=== PATIENT | male | born 1950 | race Caucasian/White ===

== ENCOUNTER 2022-02-28 08:37 | Inpatient (IN) ==
--- NOTE | 2022-02-07 10:54 | PAT Medication Instructions ---
Medication Instructions Date of Service February 07, 2022 Home Medications celecoxib 200 mg capsule (Celebrex) 200 mg PO DAILY dicyclomine 20 mg tablet 20 mg PO QID diphenoxylate-atropine 2.5 mg-0.025 mg tablet 1 tab PO TID PRN gabapentin 100 mg capsule 100 mg PO BID hydroxychloroquine 200 mg tablet (Plaquenil) 400 mg PO DAILY lamotrigine 300 mg tablet,extended release 24 hr (Lamictal XR) 300 mg PO QAM loperamide 2 mg tablet (Imodium A-D) 4 mg PO QAM olmesartan 5 mg tablet 5 mg PO QAM ASK your surgeon for instructions celecoxib 200 mg capsule (Celebrex) 200 mg PO DAILY ASK your prescriber and surgeon hydroxychloroquine 200 mg tablet (Plaquenil) 400 mg PO DAILY DO NOT take the morning of surgery dicyclomine 20 mg tablet 20 mg PO QID diphenoxylate-atropine 2.5 mg-0.025 mg tablet 1 tab PO TID PRN loperamide 2 mg tablet (Imodium A-D) 4 mg PO QAM olmesartan 5 mg tablet 5 mg PO QAM Take morning of surgery With a small sip of water, OTHERWISE NOTHING TO EAT OR DRINK AFTER MIDNIGHT: gabapentin 100 mg capsule 100 mg PO BID lamotrigine 300 mg tablet,extended release 24 hr (Lamictal XR) 300 mg PO QAM Take evening before surgery dicyclomine 20 mg tablet 20 mg PO QID diphenoxylate-atropine 2.5 mg-0.025 mg tablet 1 tab PO TID PRN (if needed) gabapentin 100 mg capsule 100 mg PO BID Other Notes If you have any questions please call us at [phone] or [phone] or [phone] or [phone]
--- NOTE | 2022-02-14 10:18 | Anesthesiology Consultation ---
Date of Service February 14, 2022 Assessment & Plan (1) Encounter for pre-operative examination: - Aortic aneurysm: ? location. 4.0cm per patient (he reports it was incidentally found on imaging/monitored by PCP). Awaiting most recent aortic aneurysm imaging. Also awaiting surgeon-ordered PCP clearance (Dr. Carmona/Chrissy- scheduled 02/20). - COVID screening: Per assessment on 02/14: No known COVID-19 positive contacts or current COVID-19 related symptoms. Travel screen negative. Patient vaccinated. Surgeon arranging preop COVID testing. Awaiting results. Chart Review Chart Review: Patient seen in Pre Admission Testing Teaching & Discussion Pre-Anesthesia Teaching/Discussion Notes: Instructed NPO after midnight before surgery,except medications with 15 cc of water. Medication instructions provided according to the PAT guidelines. History Surgery Operation Date: 02/28/22 09:55 Proposed Procedures p L2-S1 Decompression and Fusion Spinal Cord Monitoring - Vasquez Regalado, Height/Weight Height: 5 ft 10 in Weight: 99 kg Allergies Allergy/AdvReac Type Severity Reaction Status Date / Time prednisone Allergy Intermediate Shakiness Verified 02/04/22 09:05 ibuprofen Allergy Unknown Unknown Verified 02/04/22 09:05 levofloxacin [From Levaquin] Allergy Unknown Unknown Verified 02/04/22 09:05 lisinopril Allergy Unknown Unknown Verified 02/04/22 09:05 cloth bandage Allergy Mild Rash Uncoded 02/04/22 09:05 Medications Home Medications Medication Instructions Recorded Confirmed Last Taken dicyclomine 20 mg tablet 20 mg PO QID 02/04/22 02/04/22 Unknown diphenoxylate-atropine 2.5 1 tab PO TID PRN 02/04/22 02/04/22 Unknown mg-0.025 mg tablet gabapentin 100 mg capsule 100 mg PO BID 02/04/22 02/04/22 Unknown lamotrigine 300 mg tablet,extended 300 mg PO QAM 02/04/22 02/04/22 Unknown release 24 hr (Lamictal XR) loperamide 2 mg tablet (Imodium 4 mg PO QAM 02/04/22 02/04/22 Unknown A-D) olmesartan 5 mg tablet 5 mg PO QAM 02/04/22 02/04/22 Unknown Past Medical History Medical History Aneurysm Incidental finding on imaging per pt > aortic ? location (4.0cm) > follows Dr. Carmona (PCP)/Chrissy Anxiety Arthritis Attention deficit disorder (ADD) Bipolar disorder BPH (benign prostatic hyperplasia) Carpal tunnel syndrome Chronic back pain CKD (chronic kidney disease) Degenerative disc disease Hypertension IBS (irritable bowel syndrome) issues since radiation treatments, reason for GI meds Kidney stones hx Migraine hx Prostate cancer approx 6 yrs > 40 radiation treatments, no surgery Scoliosis Sleep apnea no device Exercise / Class Metabolic Activity II 4-5 Yardwork/Stairs/Walk up hill (one FS (no CP, no SOB)) Past Family History Family History Brother History of anesthesia reaction got very confused, psych issues post op, then resolved Past Surgical History Surgical History History of appendectomy History of cataract surgery r/l History of colonoscopy History of ear surgery cyst removed > benign History of esophagogastroduodenoscopy (EGD) History of lithotripsy Hx of inguinal hernia repair left Hx of vasectomy Hx of vitrectomy r/l S/P cervical spinal fusion C5-6 > ROM WNL per pt Past Anesthesia History No Hx of Anesthesia Complications Brother- "wigged out"/confused with anesthesia emergence History of PONV No Hx of PONV and Hx of Motion Sickness Social History Smoking Status: Never smoker Do You Dip or Chew Tobacco: No Hx Alcohol Use: Yes Alcohol type: beer alcohol intake frequency: holidays/special occasions only Hx Substance Use: No substance use type: does not use Review of Systems Patient denies chest pain, shortness of breath, dyspnea on exertion, fever, chil ls, cough, wheezing, palpitations. Physical Exam Vital Signs VITALS BP 128/89 P 56 TEMP 98.3 SP02 96%RA RESP 16 PHYSICAL Full cervical extension range of motion. Full TMJ range of motion. TMD 3.5 finger breaths Mallampati Score 1 Dentition: intact Lungs: clear throughout to auscultation Cardiac: regular rate and rhythm, no murmurs noted Spine: normal Carotid arteries: negative bruit Extremities: no edema Lab Results Anesthesia Preop Results Results Anesthesia Widget: WBC 5.78 K/uL (4.8-10.8) 02/14/22 Hgb 15.5 g/dL (14.0-18.0) 02/14/22 Hct 46.9 % (42-52) 02/14/22 Plt 229 K/uL (130-400) 02/14/22 Na 137 mmol/L (136-145) 02/14/22 K 4.5 mmol/L (3.5-5.1) 02/14/22 Cl 103 mmol/L (98-107) 02/14/22 CO2 30 mmol/L (21-32) 02/14/22 BUN 23 mg/dl (6-23) 02/14/22 Creat 1.35 mg/dl (0.6-1.4) 02/14/22 Glucose Level 94 mg/dl (70-99(Fasting)) 02/14/22 PT 11.0 Seconds (9.0-12.0) 02/14/22 PTT 29.9 Seconds (21.0-31.0) 02/14/22 INR 1.0 (0.9-1.1) 02/14/22 Urine Color Yellow 02/14/22 Urine Appearance Clear (Clear) 02/14/22 Urine pH 6.0 (4.5-7.5) 02/14/22 Urine Specific [place] 1.021 (1.000-1.030) 02/14/22 Urine Protein Negative (Negative) 02/14/22 Urine Glucose (UA) Negative (Negative) 02/14/22 Urine Ketones Negative (Negative) 02/14/22 Urine Blood Negative (Negative) 02/14/22 Urine Nitrite Negative (Negative) 02/14/22 Urine Bilirubin Negative (Negative) 02/14/22 Urine Urobilinogen Negative (Negative) 02/14/22 Urine Leukocyte Esterase Negative (Negative) 02/14/22 Blood Type A Positive 02/14/22 Antibody Screen NEGATIVE 02/14/22 Testing Laboratory Results 01/08/22 SODIUM 136 POTASSIUM 4.1 CHLORIDE 102 CO2 27.7 BUN 21.2 CREATININE 1.41 GLUCOSE 92 Electrocardiogram Date: 02/14/22 Sinus Bradycardia at 53 bpm. Otherwise normal ECG. Chest X-Ray Date: 02/14/22 FINDINGS: Frontal and lateral radiographs of the chest demonstrate the cardiomediastinal silhouette to be within normal limits. The aorta is atherosclerotic and ectatic. The lungs are clear of alveolar opacities. There is no evidence for effusion bilaterally. There is no evidence for vascular congestion. There is no acute osseous pathology. IMPRESSION: No acute cardiopulmonary disease. Stress Test Date: 12/05/21 Agnostic stress ECG due to artifact and poor quality. Good functional capacity, achieving 7 METS. Chest pain, shortness of breath with exercise complaints. Echocardiogram is negative for ischemia at workload achieved. EF 65%. No obvious RWMA. 86% MPHR.
[~2022-02-28 08:37] MED LIST: ACETAMINOPHEN 500 MG TAB PO SCH; CeleBREX 200 MG CAP PO SCH; GABAPENTIN 300 MG CAP PO SCH; LR 15ML/HR IV SCH; ceFAZolin 2000MG 2,000 MG/15 ML SYR IV SCH
[2022-02-28] MEDS ORDERED: CeleBREX 200 MG CAP ONE (09:12)
--- NOTE | 2022-02-28 09:29 | History & Physical Bridge Note ---
Date of Service February 28, 2022 History & Physical Bridge Note I have examined the patient, reviewed the History & Physical and in the interval since the performance of the History & Physical I have noted the following changes of clinical significance: no changes noted
--- NOTE | 2022-02-28 09:30 | History & Physical Report ---
Date of Service February 28, 2022 Assessment & Plan (1) Neurogenic claudication due to lumbar spinal stenosis: Plan: L2-S1 decompression and fusion History of Present Illness Chief Complaint: Back and bilateral leg pain Primary Care Provider: NO PCP 63-year-old male presents with chronic persistent back and leg pain. Failing course of nonoperative care is here for surgical invention. Allergies Allergy/AdvReac Type Severity Reaction Status Date / Time prednisone Allergy Intermediate Shakiness Verified 02/28/22 09:03 ibuprofen Allergy Unknown Unknown Verified 02/28/22 09:03 levofloxacin [From Levaquin] Allergy Unknown Unknown Verified 02/28/22 09:03 lisinopril Allergy Unknown Unknown Verified 02/28/22 09:03 cloth bandage Allergy Mild Rash Uncoded 02/28/22 09:03 Home Medications Medication Instructions Recorded Confirmed Type dicyclomine 20 mg tablet 20 mg PO QID 02/04/22 02/28/22 History diphenoxylate-atropine 2.5 1 tab PO TID PRN 02/04/22 02/28/22 History mg-0.025 mg tablet gabapentin 100 mg capsule 100 mg PO BID 02/04/22 02/28/22 History lamotrigine 300 mg tablet,extended 300 mg PO QAM 02/04/22 02/28/22 History release 24 hr (Lamictal XR) loperamide 2 mg tablet (Imodium 4 mg PO QAM 02/04/22 02/28/22 History A-D) olmesartan 5 mg tablet 5 mg PO QAM 02/04/22 02/28/22 History Past Med/Surg History Medical History Aneurysm Incidental finding on imaging per pt > aortic ? location (4.0cm) > follows Dr. Carmona (PCP)/Chrissy Anxiety Arthritis Attention deficit disorder (ADD) Bipolar disorder BPH (benign prostatic hyperplasia) Carpal tunnel syndrome Chronic back pain CKD (chronic kidney disease) Degenerative disc disease Hypertension IBS (irritable bowel syndrome) issues since radiation treatments, reason for GI meds Kidney stones hx Migraine hx Prostate cancer approx 6 yrs > 40 radiation treatments, no surgery Scoliosis Sleep apnea no device Surgical History History of appendectomy History of cataract surgery r/l History of colonoscopy History of ear surgery cyst removed > benign History of esophagogastroduodenoscopy (EGD) History of lithotripsy Hx of inguinal hernia repair left Hx of vasectomy Hx of vitrectomy r/l S/P cervical spinal fusion C5-6 > ROM WNL per pt Family History Brother History of anesthesia reaction got very confused, psych issues post op, then resolved Social History Smoking Status: Never smoker Second Hand Exposure: No; Do You Dip or Chew Tobacco: No; Tobacco Cessation Education Requested by Patient: No Hx Alcohol Use: Yes Alcohol type: beer Hx Substance Use: No Preferred Language: Surinamese Communication Ability: Effective Call Worker Person Required: No Beliefs That Will Affect Care: None Current Living Situation: Spouse Other Information That Helps Us Care for You: No Feels Safe at Home: Yes Safety Concerns: Feels Safe At This Time Assistive Devices: Glasses Physical Exam Physical Exam: Patient is alert and oriented Heart regular in rhythm Lungs clear Results & Data Results & Data ([facility]) Vital Signs (Past 12 Hours) Vital Signs Temp Pulse Resp BP Pulse Ox 02/28/22 09:22 36.5 C 66 18 138/91 96
[2022-02-28] MEDS ORDERED: fentaNYL citrate 100 MCG/2 ML VIAL ONE (09:48)
[2022-02-28] MEDS ORDERED: LIDOCAINE 2% 2 ML VIAL/AMP(20MG/ML) INFIL ONE (09:48)
[2022-02-28] MEDS ORDERED: MIDAZOLAM HCL 1 MG/ML 2ML VIAL ONE (09:48)
[2022-02-28] MEDS ORDERED: PROPOFOL IV EMULSION 10 MG/ML 20 ML VIAL IV ONE (09:48)
[2022-02-28] MEDS ORDERED: BUPIVACAINE/EPINEPHRINE 0.25% 1:200,000 30 ML VIAL ONE (09:57)
[2022-02-28] MEDS: ceFAZolin 330 MG/ML 1 GM VIAL ONE ×2 (10:05→12:44)
[2022-02-28] MEDS ORDERED: ROCURONIUM BROMIDE 10 MG/ML 5 ML VIAL IV ONE (10:38)
[2022-02-28] MEDS ORDERED: ONDANSETRON INJ 2 MG/ML 2 ML VIAL ONE (10:39)
[2022-02-28] MEDS ORDERED: FLOSEAL HEMOSTATIC MATRIX 10ML TOP ONE ×4 (10:41→12:07)
[2022-02-28] MEDS ORDERED: NALOXONE HCL 0.4 MG/1 ML VIAL/CARP IV PRN ×2 (10:47→15:33)
[2022-02-28] MEDS ORDERED: PROMETHAZINE HCL 12.5 MG in SODIUM CHLORIDE 0.9% 50 ML IV PRN ×2 (10:47→15:33)
[2022-02-28] MEDS ORDERED: ATROPINE SULFATE 0.1 MG/ML 10ML SYR IV PRN (10:47)
[2022-02-28] MEDS ORDERED: LABETALOL HCL IV 5 MG/ML 20ML IV PRN (10:47)
[2022-02-28] MEDS ORDERED: ePHEDrine sulfate 50 MG/ML AMP IV PRN (10:47)
[2022-02-28] MEDS ORDERED: FLUMAZENIL 0.1 MG/1 ML 10 ML VIAL IV PRN (10:47)
[2022-02-28] MEDS ORDERED: ONDANSETRON INJ 2 MG/ML 2 ML VIAL IV PRN ×2 (10:47→15:33)
[2022-02-28] MEDS ORDERED: HYDROmorphone INJ 2 MG/ML SYR/VIAL ONE (11:18)
[2022-02-28] MEDS ORDERED: ePHEDrine sulfate 50 MG/ML SYR ONE (11:41)
[2022-02-28] MEDS ORDERED: NEOSTIGMINE METHYLSULFATE 1 MG/ML 10ML VIAL ONE (11:42)
[2022-02-28] MEDS ORDERED: GLYCOPYRROLATE 0.2 MG/ML VIAL ONE (11:42)
--- NOTE | 2022-02-28 12:47 | Operative Report ---
Post Operative Report Pre & Post Diagnosis Operation Date: 02/28/22 10:05 Pre-Op Diagnosis: Neurogenic claudication due to lumbar spinal stenosis. Post-Op Diagnosis: Neurogenic claudication due to lumbar spinal stenosis. I identified the patient and participated in the time-out.: Yes Procedure Operation Date: 02/28/22 10:05 Actual Procedures #1 lumbar decompression bilateral medial facetectomies and foraminotomies L2-L3, L3-L4, L4-5 and L5-S1. #2 posterior spinal fusion L2-S1. #3 placement posterior segmental instrumentation L2-S1. #4 interbody fusion L4-L5 #5 placement of Spira 10 x 26 mm cage at L4-L5. #6 placement locally harvested morselized autograft in the posterior gutters. #7 placement infuse collagen sponge, master graft in the posterior lateral gutters and I factor interbody space. Surgeon Vasquez Regalado DO Ems Manager Ramon Diaz Estimated Blood Loss 250 Findings Consistent with Post-Op Diagnosis Specimens None Indications This is a 71-year-old male who presents above-mentioned diagnosis after failed extensive course of nonoperative care is here for the above-mentioned procedure. Description of Procedure Patient was met with identified informed consent obtained. Patient was then taken to the operative suite underwent ablation placed in a prone position the [place] table top [place] frame. All bony prominences well-padded eyes inspected to ensure no external pressure placed upon them. This point lumbar spine was prepped and draped in a sterile fashion. Sharp dissection with the assistance of Bovie cautery was performed down to and exposing the lamina and transverse processes of L2-L3 L4-5 and sacral ala bilaterally. From a caudal cephalad fashion a laminectomy of L5 L4 L3 and L2 was performed including medial facetectomies and foraminotomies addressing severe spinal stenosis. Pedicle screws then placed in L to L3-L4-L5 and S1 levels bilaterally with assistance of fluoroscopy and the proper sized madeline placed. By way of transfer approach on the right complete discectomy of L4-5 was performed endplates curetted to subcortica l bleeding bone and a 10 x 6 mm spiral cage filled I factor tapped in position. The rods then locked in final position bilaterally. The transverse processes of L to L3-L4-L5 and sacral ala burred to subcortical bleeding bone. Infuse collagen sponge master graft lobe autograft was placed in the posterior gutters. 15 round CLAUDETTE drain inserted. The incision was then closed with 1 Vicryl the fascia 2-0 Vicryl subcutaneously and 4 Monocryl for final skin closure. Steri- Strips dressings placed. Patient waken taken to PACU stable condition. Please note spinal cord monitoring visualized at the procedure no changes noted. Lastly Ramon Diaz was present at the entire surgery while the patient positioning complex portions of the surgery and final skin closure. I attest to the content of the Intraoperative Record and any orders documented therein. Any exceptions are noted below.
--- NOTE | 2022-02-28 13:11 | Fluoroscopy Report ---
FL lumbar spine 2-3V CLINICAL HISTORY: L2-S1 DECOMPRESSION AND FUSION TECHNIQUE: 3 views were obtained with the C-arm in the OR with the above procedure. Total fluoroscopy time was 38.8 seconds. Total skin dose was 32.4 mGy. Comparison: None available at the time of this dictation. FINDINGS/IMPRESSION: Intraoperative images were obtained of posterior spinal fixation hardware spanni ng L2 S1. Please correlate with intraoperative fluoroscopy and operative report. ACT 112: Negative or not required by law. Electronically signed by: Issac Fernando M.D. 02/28/2022 1:09 PM
[2022-02-28] MEDS: fentaNYL citrate 100 MCG/2 ML VIAL IV PRN ×2 (13:41→13:46)
[2022-02-28] MEDS: HYDROmorphone INJ 1 MG/ML SYRINGE IV PRN ×6 (13:50→15:00)
--- NOTE | 2022-02-28 14:32 | Anesthesiology Progress Note ---
Date of Service February 28, 2022 Anesthesia Post Procedure Vital Signs Vital Signs: Temp Pulse Pulse Resp BP Pulse Ox 02/28/22 14:15 60 18 125/82 98 02/28/22 14:05 36.2 C L 53 L 19 117/81 99 02/28/22 13:55 58 L 17 125/85 98 02/28/22 13:45 58 L 20 131/82 98 02/28/22 13:35 59 L 18 120/82 98 02/28/22 13:25 56 L 20 121/76 100 02/28/22 13:15 36 C L 66 21 130/84 98 02/28/22 09:22 36.5 C 66 18 138/91 96 Pain Intensity Back: Pain Intensity: 6 Transfer of Care Handoff Completed per policy Notes Mental Status: alert / awake / arousable Patient Amnestic to Procedure: Yes Nausea / Vomiting: adequately controlled Pain: adequately controlled Airway Patency, RR, SpO2: stable & adequate BP & HR: stable & adequate Hydration State: stable & adequate Anesthetic Complications: no major complications apparent
[2022-02-28] MEDS ORDERED: traMADol HCL 50 MG TABLET PO PRN (15:33)
[2022-02-28] MEDS ORDERED: hydrOXYzine HCl 25 MG TAB PO PRN (15:33)
[2022-02-28] MEDS ORDERED: ACETAMINOPHEN 1,000 MG/100 ML VIAL IV PRN (15:33)
[2022-02-28] MEDS ORDERED: MAGNESIUM HYDROXIDE SUSP 30 ML UDC PO PRN (15:33)
[2022-02-28] MEDS ORDERED: LORazepam 2 MG/1 ML VIAL IV PRN (15:33)
[2022-02-28] MEDS ORDERED: bisacodyL 10 MG SUPP PR PRN (15:33)
[2022-02-28] MEDS ORDERED: ONDANSETRON 4 MG OD TAB PO PRN (15:33)
[2022-02-28] MEDS ORDERED: DO NOT ADMINISTER PNEUMOCOCCAL VACCINE PRN (15:33)
[2022-02-28] MEDS ORDERED: SOD PHOSPHATE/SOD BIPHOSPHATE ENEMA 132 ML BTL PR PRN (15:33)
[2022-02-28] MEDS ORDERED: ACETAMINOPHEN 500 MG TAB PO PRN (15:33)
[2022-02-28] MEDS ORDERED: ALUMINUM/MAGNESIUM SUSP 30 ML UDC PO PRN (15:33)
[2022-02-28] MEDS ORDERED: METOCLOPRAMIDE HCL INJ 5 MG/ML 2 ML VIAL IV PRN (15:33)
[2022-02-28] MEDS ORDERED: FAMOTIDINE 20 MG TAB PO PRN (15:33)
[2022-02-28] MEDS ORDERED: diphenhydrAMINE Capsule 25 MG CAP PO PRN (15:33)
[2022-02-28] MEDS ORDERED: DO NOT ADMINISTER FLU VACCINE PRN (15:33)
[2022-02-28] MEDS ORDERED: DIPHENOXYLATE/ATROPINE 2.5/0.025MG TAB PO PRN (15:41)
[2022-02-28] MEDS ORDERED: LORazepam 0.5 MG TAB PO PRN (15:44)
[2022-02-28] MEDS: ALLERGY Noted to ORDERED Medication SCH ×5 (15:47→23:04)
[2022-02-28] MEDS: SODIUM CHLORIDE 0.9% 1000ML 1,000 ML IV SCH (16:38)
--- NOTE | 2022-02-28 16:52 | Consultation ---
Date of Consultation February 28, 2022 Assessment & Plan (1) Status post lumbar surgery: Post op day# 0 S/P L2-S1 decompression and fusion today by Dr Sabine RAMOS#250ml -pain management per ortho -wound management per ortho -PT/OT as appropriate -DVT prophylaxis per ortho -incentive spirometry -monitor H&H for acute blood loss anemia; pre-op Hgb: 15 (2) IBS (irritable bowel syndrome): -continue dicyclomine (3) Bipolar disorder: - Continue Lamictal (4) CKD (chronic kidney disease): CKD III Pre-op Cr: 1.3 Monitor renal functions, avoid nephrotoxic agents when possible (5) Prostate cancer: S/p radiation (6) Sleep apnea: Intolerant to CPAP DVT Prophylaxis -SCDs Disposition per primary service Follows with Dr Carmona in [place] for routine care Pt was seen and care coordinated with Dr Singletary. See addendum Thank you for this consultation. We will follow the patient with you during their hospital stay. You can reach a [facility]05 via [place] Text Supervising Physician Co-Signing Physician Notes Patient seen and examined at bedside. Chart reviewed, case discussed with Claribel OTERO and agree with her documentation. In summary, 71 year old male lumbar spinal stenosis with neurogenic claudication who underwent #1 lumbar decompression bilateral medial facetectomies and foraminotomies L2-L3, L3-L4, L4-5 and L5-S1. #2 posterior spinal fusion L2-S1. #3 placement posterior segmental instrumentation L2-S1. #4 interbody fusion L4-L5 #5 placement of Spira 10 x 26 mm cage at L4-L5. #6 placement locally harvested morselized autograft in the posterior gutters. #7 placement infuse collagen sponge, master graft in the posterior lateral gutters and I factor interbody space by Dr Regalado. Had nausea earlier which resolved. Tolerated gingerale and some chicken broth. Says he feels stiff and asking when he can move around. Pain is controlled. AAO. Chest clear, heart sounds normal, abdomen benign, no edema, CLAUDETTE drain +, titus +. Further surgical management including diet, DVT prophylaxis, pain management and activities per primary team. Chronic medical conditions stable. Rest as per above. We will be available to assist with any medical issues which arise during the hospital stay. History of Present Illness Requesting Physician: Dr Regalado Reason for Consultation: Post op medical management Attending Physician: Vasquez Regalado, DO History of Present Illness Patient is 71 y/o M with PMH HTN, CKD III, bipolar disorder, IBS, history of prostate CA s/p radiation, MARKUS intolerant to CPAP, BPH seen in medical consultation s/p L2-S1 decompression and fusion today by Dr. Regalado. Postop patient reports nausea. He reports pressure to low back area. Denies extremity pain or paresthesias. Has Titus cath in place. Patient reports since history of radiation he often has multiple soft BMs a day. Denies fever/chills, diaphoresis, N/V, [place], dizziness, syncope, vision changes, neck pain, CP, SOB, orthopnea, palpitations, cough, sore throat, otalgia, rhinorrhea, abdominal pain, extremity weakness, extremity edema, rashes, urinary symptoms. Allergies Allergy/AdvReac Type Severity Reaction Status Date / Time prednisone Allergy Intermediate Shakiness Verified 02/28/22 09:03 ibuprofen Allergy Unknown Unknown Verified 02/28/22 09:03 levofloxacin [From Levaquin] Allergy Unknown Unknown Verified 02/28/22 09:03 lisinopril Allergy Unknown Unknown Verified 02/28/22 09:03 cloth bandage Allergy Mild Rash Uncoded 02/28/22 09:03 Home Medications Medication Instructions Recorded Confirmed Type dicyclomine 20 mg tablet 20 mg PO QID 02/04/22 02/28/22 History diphenoxylate-atropine 2.5 1 tab PO TID PRN 02/04/22 02/28/22 History mg-0.025 mg tablet gabapentin 100 mg capsule 100 mg PO BID 02/04/22 02/28/22 History lamotrigine 300 mg tablet,extended 300 mg PO QAM 02/04/22 02/28/22 History release 24 hr (Lamictal XR) loperamide 2 mg tablet (Imodium 4 mg PO QAM 02/04/22 02/28/22 History A-D) olmesartan 5 mg tablet 5 mg PO QAM 02/04/22 02/28/22 History Patient History Medical History Aneurysm Incidental finding on imaging per pt > aortic ? location (4.0cm) > follows Dr. Carmona (PCP)/Chrissy Anxiety Arthritis Attention deficit disorder (ADD) Bipolar disorder BPH (benign prostatic hyperplasia) Carpal tunnel syndrome Chronic back pain CKD (chronic kidney disease) Degenerative disc disease Hypertension IBS (irritable bowel syndrome) issues since radiation treatments, reason for GI meds Kidney stones hx Migraine hx Prostate cancer approx 6 yrs > 40 radiation treatments, no surgery Scoliosis Sleep apnea no device Surgical History History of appendectomy History of cataract surgery r/l History of colonoscopy History of ear surgery cyst removed > benign History of esophagogastroduodenoscopy (EGD) History of lithotripsy Hx of inguinal hernia repair left Hx of vasectomy Hx of vitrectomy r/l S/P cervical spinal fusion C5-6 > ROM WNL per pt Family History Brother History of anesthesia reaction got very confused, psych issues post op, then resolved Social History Smoking Status: Never smoker Second Hand Exposure: No; Do You Dip or Chew Tobacco: No; Tobacco Cessation Education Requested by Patient: No Hx Alcohol Use: No Hx Substance Use: No Preferred Language: Belgian Communication Ability: Effective Woods Overseer Required: No Beliefs That Will Affect Care: None Current Living Situation: Spouse Other Information That Helps Us Care for You: No Feels Safe at Home: Yes Safety Concerns: Feels Safe At This Time Assistive Devices: Glasses Review of Systems Review of Systems: All systems reviewed & are unremarkable except as noted in HPI & below Physical Exam Physical Exam: General: mild distress, patient uncomfortable in bed and trying to find position of comfort. WDWN Head: normocephalic, atraumatic Eyes: conjunctiva non-injected, anicteric ENT: normal inspection external ears, nose, mucous membranes moist Neck: supple, trachea midline Lungs: clear, no respiratory distress, no wheezing/rhonchi/rales CV: RRR, no murmur, no pretibial edema Abd: normal BS, soft, non-tender Back: surgical dressing in place and dry. +CLAUDETTE drain in place with scant amount of serosanguineous drainage Ext: no cyanosis, no calf tenderness; pedal pushes and pulls intact bilaterally Neuro: A&O x 3, no focal deficits noted, normal affect Skin: warm, dry Results & Data ([facility]) Vital Signs (Past 12 Hours) Vital Signs Temp Pulse Pulse Resp BP Pulse Ox 02/28/22 16:20 36.3 C L 60 16 127/84 97 02/28/22 15:50 36.3 C L 55 L 16 122/76 97 02/28/22 15:20 36.4 C L 51 L 16 118/73 94 02/28/22 15:15 54 L 18 122/76 96 02/28/22 15:05 49 L 17 135/82 97 02/28/22 14:55 47 L 15 127/91 97 02/28/22 14:45 36 C L 57 L 14 126/78 94 02/28/22 14:35 57 L 15 128/73 98 02/28/22 14:25 61 13 118/76 98 02/28/22 14:15 60 18 125/82 98 02/28/22 14:05 36.2 C L 53 L 19 117/81 99 02/28/22 13:55 58 L 17 125/85 98 02/28/22 13:45 58 L 20 131/82 98 02/28/22 13:35 59 L 18 120/82 98 02/28/22 13:25 56 L 20 121/76 100 02/28/22 13:15 36 C L 66 21 130/84 98 02/28/22 09:22 36.5 C 66 18 138/91 96
[2022-02-28] MEDS: DICYCLOMINE HCL 20 MG TAB PO SCH ×2 (17:43→19:35)
[2022-02-28] MEDS: ceFAZolin 2000MG 2,000 MG/15 ML SYR IV SCH (18:12)
[2022-02-28] MEDS: GABAPENTIN 100 MG CAP PO SCH (19:35)
[2022-02-28] MEDS: DOCUSATE SODIUM/SENNA 50/8.6MG TAB PO SCH (19:36)
[2022-02-28] MEDS: oxyCODONE HCL IR 5 MG TAB (IMMEDIATE RELEASE) PO PRN (21:51)
[2022-02-28] MEDS ORDERED: COUGH DROP (SUGAR FREE) LOZ 24 LOZ/1 BOX BUCCAL PRN (22:16)
[2022-03-01] MEDS: SODIUM CHLORIDE 0.9% 1000ML 1,000 ML IV SCH (01:30)
[2022-03-01] MEDS: HYDROmorphone INJ 0.5 MG/0.5 ML SYR IV PRN ×2 (01:30→11:56)
[2022-03-01] MEDS: ceFAZolin 2000MG 2,000 MG/15 ML SYR IV SCH (04:01)
[2022-03-01 05:58] LABS: Basophils # (auto) 0.01 K/uL (0-0.2); Basophils % (auto) 0.2 %; Eosinophils # (auto) 0.16 K/uL (0-0.5); Eosinophils % (auto) 2.5 %; Hematocrit (blood only) 34.9 % (42-52); Hemoglobin 11.4 g/dL (14.0-18.0); Immature Granulocytes # (auto) 0.01 K/uL (0.00-0.02); Immature Granulocytes % (auto) 0.2 %; Lymphocytes # (auto) 1.16 K/uL (1.2-3.4); Lymphocytes % (auto) 18.1 %; Mean Corpuscular Hemoglobin 30.1 pg (25-34); Mean Corpuscular Hgb Conc 32.7 g/dL (32-36); Mean Corpuscular Volume 92.1 fL (80-100); Mean Platelet Volume 10.7 fL (7.4-10.4); Monocytes # (auto) 0.72 K/uL (0.11-0.59); Monocytes % (auto) 11.2 %; Neutrophils # (auto) 4.35 K/uL (1.4-6.5); Neutrophils % (auto) 67.8 %; Platelet Count 192 K/uL (130-400); RDW Coefficient of Variation 13.6 % (11.5-14.5); RDW Standard Deviation 45.8 fL (36.4-46.3); Red Blood Count 3.79 M/uL (4.7-6.1); White Blood Count 6.41 K/uL (4.8-10.8)
[2022-03-01] MEDS: POLYETHYLENE (MIRALAX) 17 GM PACK PO SCH ×4 (06:04→23:01)
[2022-03-01 06:18] LABS: BUN Creatinine Ratio 16.7 (10-20); Calcium 7.9 mg/dl (8.5-10.1); Creatinine Clr Calc Pharmacy 74.8 ml/min; Est GFR (African American) 80.7 ml/min; Est GFR (Non-African American) 69.7 ml/min; Potassium 4.3 mmol/L (3.5-5.1)
--- NOTE | 2022-03-01 08:20 | Hospitalist Progress Note ---
Date of Service March 01, 2022 Assessment & Plan (1) Status post lumbar surgery: Plan: Post op day# 1 S/P L2-S1 decompression and fusion by Dr Regalado -pain management per ortho -wound management per ortho -PT/OT as appropriate -DVT prophylaxis per ortho -incentive spirometry Acute blood loss anemia Postop/dilutional Current Hgb 11.4, pre-op Hgb: 15 Expected, no need for blood transfusion (2) IBS (irritable bowel syndrome): Plan: -change home dicyclomine to PRN for now (3) Bipolar disorder: Plan: - Continue Lamictal (4) CKD (chronic kidney disease): Plan: CKD III Pre-op Cr: 1.3 Monitor renal functions, avoid nephrotoxic agents when possible (5) Prostate cancer: Plan: S/p radiation (6) Sleep apnea: Plan: Intolerant to CPAP DVT Prophylaxis -SCDs Disposition per primary service Follows with Dr Carmona in [place], [place] for routine care Thank you for this consultation. We will follow the patient with you during their hospital stay. You can reach a member of the [facility] Hospitalist Team 11/05 via [place] Text Admission and Anticipated Discharge Date Admission Date: February 28, 2022 Subjective Patient seen in follow-up of lumbar spinal surgery Currently sitting up in a chair, in no acute distress Khan placed, drains clear yellow urine Patient feels well overall, but has some back pain Denies any fevers, chills, chest pain, shortness of breath, abdominal pain, nausea vomiting Review of Systems Review of Systems: All systems reviewed & are unremarkable except as noted in Subjective Physical Exam Physical Exam: General: WD/WN M in NAD Head: normocephalic, atraumatic Eyes: conjunctiva non-injected, anicteric ENT: normal inspection external ears, nose, mucous membranes moist Neck: supple, trachea midline Lungs: clear, no respiratory distress, no wheezing/rhonchi/rales CV: RRR, no murmur, no pretibial edema Abd: normal BS, soft, non-tender Back: surgical dressing in place and dry. +CLAUDETTE drain in place with scant amount of serosanguineous drainage Ext: no calf tenderness; pedal pushes and pulls intact bilaterally, ambulates Neuro: A&O x 3, no focal deficits noted, normal affect Skin: warm, dry Results & Data Results & Data ([facility]) Vital Signs (Past 12 Hours) Vital Signs Temp Pulse Resp BP Pulse Ox 03/01/22 07:56 36.7 C 79 16 100/63 94 03/01/22 01:09 36.9 C 54 L 16 107/64 97 02/28/22 23:08 36.6 C 63 16 99/68 L 98 Laboratory Results 03/01/22 03/01/22 02/28/22 Range/Units 05:42 05:42 Unknown WBC 6.41 (4.8-10.8) K/uL RBC 3.79 L (4.7-6.1) M/uL Hgb 11.4 L (14.0-18.0) g/dL Hct 34.9 L (42-52) % MCV 92.1 (80-100) fL MCH 30.1 (25-34) pg MCHC 32.7 (32-36) g/dL RDW Std Deviation 45.8 (36.4-46.3) fL RDW Coeff of Annette 13.6 (11.5-14.5) % Plt Count 192 (130-400) K/uL MPV 10.7 H (7.4-10.4) fL Immature Gran % (Auto) 0.2 % Neut % (Auto) 67.8 % Lymph % (Auto) 18.1 % Catron % (Auto) 11.2 % Eos % (Auto) 2.5 % Baso % (Auto) 0.2 % Neut # (Auto) 4.35 (1.4-6.5) K/uL Lymph # (Auto) 1.16 L (1.2-3.4) K/uL Catron # (Auto) 0.72 H (0.11-0.59) K/uL Eos # (Auto) 0.16 (0-0.5) K/uL Baso # (Auto) 0.01 (0-0.2) K/uL Immature Gran # (Auto) 0.01 (0.00-0.02) K/uL Sodium 135 L (136-145) mmol/L Potassium 4.3 (3.5-5.1) mmol/L Chloride 103 (98-107) mmol/L Carbon Dioxide 28 (21-32) mmol/L Anion Gap 4 (3-11) BUN 18 (6-23) mg/dl Creatinine 1.08 (0.6-1.4) mg/dl Est Cr Clr Drug Dosing 74.8 ml/min Est GFR ( Amer) 80.7 ml/min Est GFR (Non-Af Amer) 69.7 ml/min BUN/Creatinine Ratio 16.7 (10-20) Glucose 125 H (70-99(Fasting)) mg/dl Calcium 7.9 L (8.5-10.1) mg/dl SARS-CoV-2, RNA, NAAT NEGATIVE (NEGATIVE) Blood Type Antibody Screen Crossmatch 02/28/22 Range/Units 08:57 WBC (4.8-10.8) K/uL RBC (4.7-6.1) M/uL Hgb (14.0-18.0) g/dL Hct (42-52) % MCV (80-100) fL MCH (25-34) pg MCHC (32-36) g/dL RDW Std Deviation (36.4-46.3) fL RDW Coeff of Annette (11.5-14.5) % Plt Count (130-400) K/uL MPV (7.4-10.4) fL Immature Gran % (Auto) % Neut % (Auto) % Lymph % (Auto) % Catron % (Auto) % Eos % (Auto) % Baso % (Auto) % Neut # (Auto) (1.4-6.5) K/uL Lymph # (Auto) (1.2-3.4) K/uL Catron # (Auto) (0.11-0.59) K/uL Eos # (Auto) (0-0.5) K/uL Baso # (Auto) (0-0.2) K/uL Immature Gran # (Auto) (0.00-0.02) K/uL Sodium (136-145) mmol/L Potassium (3.5-5.1) mmol/L Chloride (98-107) mmol/L Carbon Dioxide (21-32) mmol/L Anion Gap (3-11) BUN (6-23) mg/dl Creatinine (0.6-1.4) mg/dl Est Cr Clr Drug Dosing ml/min Est GFR ( Amer) ml/min Est GFR (Non-Af Amer) ml/min BUN/Creatinine Ratio (10-20) Glucose (70-99(Fasting)) mg/dl Calcium (8.5-10.1) mg/dl SARS-CoV-2, RNA, NAAT (NEGATIVE) Blood Type A Positive Antibody Screen NEGATIVE Crossmatch See Detail Medications Administered Current Inpatient Medications Acetaminophen (Acetaminophen 500 Mg Tab) 1,000 mg PO Q8H PRN PRN Reason: MILD Pain Scale 1,2,3 & Pre PT Stop: 03/30/22 15:32 Al Hydrox/Mg Hydrox/Simethicone (Aluminum/Magnesium Susp 30 Ml Udc) 30 ml PO Q6H PRN PRN Reason: Dyspepsia Stop: 03/30/22 15:32 Bisacodyl (Bisacodyl 10 Mg Supp) 10 mg AL DAILY PRN PRN Reason: Constipation Stop: 03/30/22 15:32 Dicyclomine HCl (Dicyclomine Hcl 20 Mg Tab) 20 mg PO QID [facility] Stop: 03/30/22 16:59 Last Admin: 02/28/22 19:35 Dose: Not Given Documented by: Diphenhydramine HCl (Diphenhydramine Capsule 25 Mg Cap) 25 mg PO Q6H PRN PRN Reason: Allergic Rhinitis/Insomnia Stop: 03/30/22 15:32 Diphenoxylate HCl/Atropine (Diphenoxylate/Atropine 2.5/0.025mg Tab) 1 tab PO TID PRN PRN Reason: Diarrhea Stop: 03/30/22 15:40 Famotidine (Famotidine 20 Mg Tab) 20 mg PO Q12H PRN PRN Reason: Dyspepsia Stop: 03/30/22 15:32 Gabapentin (Gabapentin 100 Mg Cap) 100 mg PO BID [facility] Stop: 03/30/22 20:59 Last Admin: 02/28/22 19:35 Dose: Not Given Documented by: Hydromorphone HCl (Hydromorphone Inj 0.5 Mg/0.5 Ml Syr) 0.5 mg IV Q3H PRN PRN Reason: MODERATE Pain (Scale 4,5,6) & Pre PT Stop: 03/14/22 15:32 Last Admin: 03/01/22 01:30 Dose: 0.5 mg Documented by: Hydromorphone HCl (Hydromorphone Inj 1 Mg/Ml Syringe) 1 mg IV Q3H PRN PRN Reason: SEVERE Pain (Scale 7,8,9,10) Stop: 03/14/22 15:32 Hydroxyzine HCl (Hydroxyzine Hcl 25 Mg Tab) 25 mg PO Q8H PRN PRN Reason: Anxiety Stop: 03/30/22 15:32 Promethazine HCl 12.5 mg/ (Sodium Chloride) 50.5 mls @ 202 mls/hr IV Q6H PRN PRN Reason: Nausea &/or Vomiting Stop: 03/30/22 15:32 Last Infusion: 02/28/22 17:40 Dose: Infused Documented by: Acetaminophen (Ofirmev) 1,000 mg in 100 mls @ 400 mls/hr IV Q8H PRN PRN Reason: Pain Rating 1-3 & Pre PT Stop: 03/03/22 15:32 Dexamethasone 6 mg/ Syringe 1.5 mls @ 1 mls/min IV DAILY [facility] Stop: 03/03/22 09:02 Influenza Virus Vaccine Quadrival (Do Not Administer Flu Vaccine) 1 ea N/A PRN PRN PRN Reason: Notification Stop: 03/30/22 15:32 Lamotrigine (Lamotrigine [Lamictal Xr] 300 Mg Tablet) 1 ea PO QAM [facility] Stop: 03/31/22 08:59 Lorazepam (Lorazepam 0.5 Mg Tab) 0.5 mg PO Q8H PRN PRN Reason: Sedation/Anxiety Stop: 03/30/22 15:43 Lorazepam (Lorazepam 2 Mg/1 Ml Vial) 0.5 mg IV Q8H PRN PRN Reason: Sedation/Anxiety Stop: 03/30/22 15:32 Magnesium Hydroxide (Magnesium Hydroxide Susp 30 Ml Udc) 30 ml PO Q24H PRN PRN Reason: Constipation Stop: 03/30/22 15:32 Menthol (Cough Drop (Sugar Free) Marimar 24 Marimar/1 Box) 1 marimar BUCCAL PRN PRN PRN Reason: Sore Throat Stop: 03/30/22 22:15 Last Admin: 02/28/22 23:03 Dose: 1 marimar Documented by: Metoclopramide HCl (Metoclopramide Hcl Inj 5 Mg/Ml 2 Ml Vial) 10 mg IV Q6H PRN PRN Reason: Nausea &/or Vomiting Stop: 03/30/22 15:32 Naloxone HCl (Naloxone Hcl 0.4 Mg/1 Ml Vial/Carp) 0.1 mg IV Q5M PRN PRN Reason: Oversedation/Resp depression Stop: 03/30/22 15:32 Olmesartan (Olmesartan Medoxomil 5 Mg Tab) 5 mg PO QAM [facility] Stop: 03/31/22 08:59 Ondansetron HCl (Ondansetron Inj 2 Mg/Ml 2 Ml Vial) 4 mg IV Q6H PRN PRN Reason: Nausea &/or Vomiting Stop: 03/30/22 15:32 Last Admin: 02/28/22 15:52 Dose: 4 mg Documented by: Ondansetron HCl (Ondansetron 4 Mg Od Tab) 4 mg PO Q6H PRN PRN Reason: Nausea Stop: 03/30/22 15:32 Oxycodone HCl (Oxycodone Hcl Ir 5 Mg Tab (Immediate Release)) 5 - 10 mg PO Q4H PRN PRN Reason: Pain & Pre PT Stop: 03/14/22 15:32 Last Admin: 02/28/22 21:51 Dose: 10 mg Documented by: Pneumococcal Polyvalent Vaccine (Do Not Administer Pneumococcal Vaccine) 1 ea N/A PRN PRN PRN Reason: Notification Stop: 03/30/22 15:32 Polyethylene Glycol (Polyethylene (Miralax) 17 Gm Pack) 17 gm PO Q6 [facility] Stop: 03/31/22 05:59 Last Admin: 03/01/22 06:04 Dose: 17 gm Documented by: Senna/Docusate Sodium (Docusate Sodium/Senna 50/8.6mg Tab) 2 tab PO HS [facility] Stop: 03/30/22 20:59 Last Admin: 02/28/22 19:36 Dose: 2 tab Documented by: Sodium Biphosphate/Sodium Phosphate (Sod Phosphate/Sod Biphosphate Enema 132 Ml Btl) 132 ml AL ONE PRN PRN Reason: Constipation Stop: 03/30/22 15:32 Tramadol HCl (Tramadol Hcl 50 Mg Tablet) 50 - 100 mg PO Q4H PRN PRN Reason: Moderate-Severe pain & Pre PT Stop: 03/30/22 15:32
[2022-03-01] MEDS: OLMESARTAN MEDOXOMIL 5 MG TAB PO SCH (08:58)
[2022-03-01] MEDS: DICYCLOMINE HCL 20 MG TAB PO SCH ×2 (08:58→13:11)
[2022-03-01] MEDS: LAMOTRIGINE 300 MG PO SCH (08:59)
[2022-03-01] MEDS: GABAPENTIN 100 MG CAP PO SCH ×2 (09:00→21:10)
[2022-03-01] MEDS: oxyCODONE HCL IR 5 MG TAB (IMMEDIATE RELEASE) PO PRN ×3 (09:01→19:06)
[2022-03-01] MEDS: dexAMETHasone 6 MG in SYRINGE 0 ML IV SCH ×2 (09:02→10:49)
--- NOTE | 2022-03-01 10:26 | Orthopedic Progress Note ---
Date of Service March 01, 2022 Assessment & Plan (1) Neurogenic claudication due to lumbar spinal stenosis: Plan: At this time continue physical therapy monitor his CLAUDETTE output hopefully discharge home in the next few days. Admission and Anticipated Discharge Date Admission Date: February 28, 2022 Subjective Back pain controlled leg pain improved Physical Exam Physical Exam: Patient is in the chair at the bedside is good strength testing. Results & Data ([facility]) Vital Signs (Past 12 Hours) Vital Signs Temp Pulse Resp BP Pulse Ox 03/01/22 08:57 71 101/63 03/01/22 07:56 36.7 C 79 16 100/63 94 03/01/22 01:09 36.9 C 54 L 16 107/64 97 02/28/22 23:08 36.6 C 63 16 99/68 L 98
[2022-03-01] MEDS ORDERED: DICYCLOMINE HCL 20 MG TAB PO PRN (13:33)
[2022-03-01] MEDS: HYDROmorphone INJ 1 MG/ML SYRINGE IV PRN (21:09)
[2022-03-01] MEDS: DOCUSATE SODIUM/SENNA 50/8.6MG TAB PO SCH (21:10)
[2022-03-02] MEDS: HYDROmorphone INJ 1 MG/ML SYRINGE IV PRN (04:44)
[2022-03-02 06:03] LABS: Hematocrit (blood only) 36.1 % (42-52); Hemoglobin 12.1 g/dL (14.0-18.0); Mean Corpuscular Hemoglobin 30.6 pg (25-34); Mean Corpuscular Hgb Conc 33.5 g/dL (32-36); Mean Corpuscular Volume 91.2 fL (80-100); Mean Platelet Volume 10.5 fL (7.4-10.4); Platelet Count 213 K/uL (130-400); RDW Coefficient of Variation 13.5 % (11.5-14.5); RDW Standard Deviation 45.1 fL (36.4-46.3); Red Blood Count 3.96 M/uL (4.7-6.1); White Blood Count 9.35 K/uL (4.8-10.8)
[2022-03-02] MEDS: POLYETHYLENE (MIRALAX) 17 GM PACK PO SCH ×3 (06:04→17:27)
[2022-03-02 06:18] LABS: BUN Creatinine Ratio 11.4 (10-20); Calcium 8.6 mg/dl (8.5-10.1); Creatinine Clr Calc Pharmacy 70.8 ml/min; Est GFR (African American) 75.6 ml/min; Est GFR (Non-African American) 65.3 ml/min; Potassium 4.5 mmol/L (3.5-5.1)
--- NOTE | 2022-03-02 07:43 | Hospitalist Progress Note ---
Date of Service March 02, 2022 Assessment & Plan (1) Status post lumbar surgery: Plan: Post op day# 2 S/P L2-S1 decompression and fusion by Dr Regalado -pain management per ortho -wound management per ortho -PT/OT as appropriate -DVT prophylaxis per ortho -incentive spirometry - pt complains of constipation, discussed with RN to provide prn bowel regimen Acute blood loss anemia Postop/dilutional Current Hgb 12.1, pre-op Hgb: 15 Expected, no need for blood transfusion (2) IBS (irritable bowel syndrome): Plan: -change home dicyclomine to PRN for now (3) Bipolar disorder: Plan: - Continue Lamictal (4) CKD (chronic kidney disease): Plan: CKD III Pre-op Cr: 1.3 Monitor renal functions, avoid nephrotoxic agents when possible (5) Prostate cancer: Plan: S/p radiation (6) Sleep apnea: Plan: Intolerant to CPAP DVT Prophylaxis -SCDs Disposition per primary service Follows with Dr Carmona in [place], [place] for routine care Thank you for this consultation. We will follow the patient with you during their hospital stay. [facility] via [place] Text Admission and Anticipated Discharge Date Admission Date: February 28, 2022 Subjective Patient seen in follow-up of lumbar spinal surgery Currently sitting up in a chair, in no acute distress Patient feels well overall, but reports some back pain Denies any fevers, chills, chest pain, shortness of breath, abdominal pain, nausea vomiting No BM yet, and not passing gas Review of Systems Review of Systems: All systems reviewed & are unremarkable except as noted in Subjective Physical Exam Physical Exam: General: WD/WN M in NAD Head: normocephalic, atraumatic Eyes: conjunctiva non-injected, anicteric ENT: normal inspection external ears, nose, mucous membranes moist Neck: supple, trachea midline Lungs: clear, no respiratory distress, no wheezing/rhonchi/rales CV: RRR, no murmur, no pretibial edema Abd: normal BS, soft, non-tender Back: surgical dressing in place and dry. +CLAUDETTE drain in place with scant amount of serosanguineous drainage Ext: no calf tenderness; pedal pushes and pulls intact bilaterally, ambulates Neuro: A&O x 3, no focal deficits noted, normal affect Skin: warm, dry Results & Data Results & Data ([facility]) Vital Signs (Past 12 Hours) Vital Signs Temp Pulse Resp BP Pulse Ox 03/01/22 22:00 37.1 C 94 H 20 109/71 94 Laboratory Results 03/02/22 03/02/22 02/28/22 Range/Units 05:50 05:50 08:57 WBC 9.35 (4.8-10.8) K/uL RBC 3.96 L (4.7-6.1) M/uL Hgb 12.1 L (14.0-18.0) g/dL Hct 36.1 L (42-52) % MCV 91.2 (80-100) fL MCH 30.6 (25-34) pg MCHC 33.5 (32-36) g/dL RDW Std Deviation 45.1 (36.4-46.3) fL RDW Coeff of Annette 13.5 (11.5-14.5) % Plt Count 213 (130-400) K/uL MPV 10.5 H (7.4-10.4) fL Sodium 131 L (136-145) mmol/L Potassium 4.5 (3.5-5.1) mmol/L Chloride 100 (98-107) mmol/L Carbon Dioxide 28 (21-32) mmol/L Anion Gap 3 (3-11) BUN 13 (6-23) mg/dl Creatinine 1.14 (0.6-1.4) mg/dl Est Cr Clr Drug Dosing 70.8 ml/min Est GFR ( Amer) 75.6 ml/min Est GFR (Non-Af Amer) 65.3 ml/min BUN/Creatinine Ratio 11.4 (10-20) Glucose 115 H (70-99(Fasting)) mg/dl Calcium 8.6 (8.5-10.1) mg/dl Crossmatch See Detail Medications Administered Current Inpatient Medications Acetaminophen (Acetaminophen 500 Mg Tab) 1,000 mg PO Q8H PRN PRN Reason: MILD Pain Scale 1,2,3 & Pre PT Stop: 03/30/22 15:32 Al Hydrox/Mg Hydrox/Simethicone (Aluminum/Magnesium Susp 30 Ml Udc) 30 ml PO Q6H PRN PRN Reason: Dyspepsia Stop: 03/30/22 15:32 Bisacodyl (Bisacodyl 10 Mg Supp) 10 mg OK DAILY PRN PRN Reason: Constipation Stop: 03/30/22 15:32 Dicyclomine HCl (Dicyclomine Hcl 20 Mg Tab) 20 mg PO QID PRN PRN Reason: abdominal cramping Stop: 03/30/22 16:59 Diphenhydramine HCl (Diphenhydramine Capsule 25 Mg Cap) 25 mg PO Q6H PRN PRN Reason: Allergic Rhinitis/Insomnia Stop: 03/30/22 15:32 Last Admin: 03/02/22 01:03 Dose: 25 mg Documented by: Diphenoxylate HCl/Atropine (Diphenoxylate/Atropine 2.5/0.025mg Tab) 1 tab PO TID PRN PRN Reason: Diarrhea Stop: 03/30/22 15:40 Famotidine (Famotidine 20 Mg Tab) 20 mg PO Q12H PRN PRN Reason: Dyspepsia Stop: 03/30/22 15:32 Gabapentin (Gabapentin 100 Mg Cap) 100 mg PO BID [facility] Stop: 03/30/22 20:59 Last Admin: 03/01/22 21:10 Dose: Not Given Documented by: Hydromorphone HCl (Hydromorphone Inj 0.5 Mg/0.5 Ml Syr) 0.5 mg IV Q3H PRN PRN Reason: MODERATE Pain (Scale 4,5,6) & Pre PT Stop: 03/14/22 15:32 Last Admin: 03/01/22 11:56 Dose: 0.5 mg Documented by: Hydromorphone HCl (Hydromorphone Inj 1 Mg/Ml Syringe) 1 mg IV Q3H PRN PRN Reason: SEVERE Pain (Scale 7,8,9,10) Stop: 03/14/22 15:32 Last Admin: 03/02/22 04:44 Dose: 1 mg Documented by: Hydroxyzine HCl (Hydroxyzine Hcl 25 Mg Tab) 25 mg PO Q8H PRN PRN Reason: Anxiety Stop: 03/30/22 15:32 Promethazine HCl 12.5 mg/ (Sodium Chloride) 50.5 mls @ 202 mls/hr IV Q6H PRN PRN Reason: Nausea &/or Vomiting Stop: 03/30/22 15:32 Last Infusion: 02/28/22 17:40 Dose: Infused Documented by: Acetaminophen (Ofirmev) 1,000 mg in 100 mls @ 400 mls/hr IV Q8H PRN PRN Reason: Pain Rating 1-3 & Pre PT Stop: 03/03/22 15:32 Influenza Virus Vaccine Quadrival (Do Not Administer Flu Vaccine) 1 ea N/A PRN PRN PRN Reason: Notification Stop: 03/30/22 15:32 Lamotrigine (Lamotrigine [Lamictal Xr] 300 Mg Tablet) 1 ea PO QAM [facility] Stop: 03/31/22 08:59 Last Admin: 03/01/22 08:59 Dose: 1 ea Documented by: Lorazepam (Lorazepam 0.5 Mg Tab) 0.5 mg PO Q8H PRN PRN Reason: Sedation/Anxiety Stop: 03/30/22 15:43 Lorazepam (Lorazepam 2 Mg/1 Ml Vial) 0.5 mg IV Q8H PRN PRN Reason: Sedation/Anxiety Stop: 03/30/22 15:32 Magnesium Hydroxide (Magnesium Hydroxide Susp 30 Ml Udc) 30 ml PO Q24H PRN PRN Reason: Constipation Stop: 03/30/22 15:32 Menthol (Cough Drop (Sugar Free) Marimar 24 Marimar/1 Box) 1 marimar BUCCAL PRN PRN PRN Reason: Sore Throat Stop: 03/30/22 22:15 Last Admin: 02/28/22 23:03 Dose: 1 marimar Documented by: Metoclopramide HCl (Metoclopramide Hcl Inj 5 Mg/Ml 2 Ml Vial) 10 mg IV Q6H PRN PRN Reason: Nausea &/or Vomiting Stop: 03/30/22 15:32 Naloxone HCl (Naloxone Hcl 0.4 Mg/1 Ml Vial/Carp) 0.1 mg IV Q5M PRN PRN Reason: Oversedation/Resp depression Stop: 03/30/22 15:32 Olmesartan (Olmesartan Medoxomil 5 Mg Tab) 5 mg PO QAM [facility] Stop: 03/31/22 08:59 Last Admin: 03/01/22 08:58 Dose: Not Given Documented by: Ondansetron HCl (Ondansetron Inj 2 Mg/Ml 2 Ml Vial) 4 mg IV Q6H PRN PRN Reason: Nausea &/or Vomiting Stop: 03/30/22 15:32 Last Admin: 02/28/22 15:52 Dose: 4 mg Documented by: Ondansetron HCl (Ondansetron 4 Mg Od Tab) 4 mg PO Q6H PRN PRN Reason: Nausea Stop: 03/30/22 15:32 Oxycodone HCl (Oxycodone Hcl Ir 5 Mg Tab (Immediate Release)) 5 - 10 mg PO Q4H PRN PRN Reason: Pain & Pre PT Stop: 03/14/22 15:32 Last Admin: 03/01/22 19:06 Dose: 10 mg Documented by: Pneumococcal Polyvalent Vaccine (Do Not Administer Pneumococcal Vaccine) 1 ea N/A PRN PRN PRN Reason: Notification Stop: 03/30/22 15:32 Polyethylene Glycol (Polyethylene (Miralax) 17 Gm Pack) 17 gm PO Q6 [facility] Stop: 03/31/22 05:59 Last Admin: 03/02/22 06:04 Dose: 17 gm Documented by: Senna/Docusate Sodium (Docusate Sodium/Senna 50/8.6mg Tab) 2 tab PO HS YOVANI Stop: 03/30/22 20:59 Last Admin: 03/01/22 21:10 Dose: 2 tab Documented by: Sodium Biphosphate/Sodium Phosphate (Sod Phosphate/Sod Biphosphate Enema 132 Ml Btl) 132 ml OK ONE PRN PRN Reason: Constipation Stop: 03/30/22 15:32 Tramadol HCl (Tramadol Hcl 50 Mg Tablet) 50 - 100 mg PO Q4H PRN PRN Reason: Moderate-Severe pain & Pre PT Stop: 03/30/22 15:32
--- NOTE | 2022-03-02 07:46 | Orthopedic Progress Note ---
Date of Service March 02, 2022 Assessment & Plan (1) Neurogenic claudication due to lumbar spinal stenosis: Plan: Patient is improving postop day #2. We will continue GI and DVT prophylaxis as well as pain control measures. We may need to increase his bowel regiment secondary to his narcotic use. We will continue to monitor his progress and hopefully discharge him to home tomorrow. Admission and Anticipated Discharge Date Admission Date: February 28, 2022 Subjective Patient is seen bedside in room 324. He has soreness and discomfort in the back itself. His had a difficult time sleeping as he cannot lie flat. His radicular complaints have improved. He has been ambulating regularly. He has not yet had a bowel movement. He denies any other numbness, tingling, or paresthesias. Physical Exam Physical Exam: On exam he stands moves slowly about the exam room. His dressing is clean dry and intact and appears to be unchanged with paper tape in place at this point. Strength and sensation are grossly intact. CLAUDETTE drain is holding suction is placed out 30 on the last shift and 40 on the previous. Results & Data ([facility]) Vital Signs (Past 12 Hours) Vital Signs Temp Pulse Resp BP Pulse Ox 03/01/22 22:00 37.1 C 94 H 20 109/71 94
[2022-03-02] MEDS: oxyCODONE HCL IR 5 MG TAB (IMMEDIATE RELEASE) PO PRN ×3 (07:57→16:06)
[2022-03-02] MEDS: GABAPENTIN 100 MG CAP PO SCH ×2 (08:25→20:47)
[2022-03-02] MEDS: LAMOTRIGINE 300 MG PO SCH (08:26)
[2022-03-02] MEDS: OLMESARTAN MEDOXOMIL 5 MG TAB PO SCH (08:27)
[2022-03-02] MEDS ORDERED: bisacodyL 5 MG TABEC PO ONE (17:00)
[2022-03-02] MEDS: DOCUSATE SODIUM/SENNA 50/8.6MG TAB PO SCH (20:47)
[2022-03-03] MEDS: POLYETHYLENE (MIRALAX) 17 GM PACK PO SCH ×3 (00:09→13:34)
[2022-03-03] MEDS: HYDROmorphone INJ 1 MG/ML SYRINGE IV PRN (03:03)
[2022-03-03 05:36] LABS: Hemoglobin 11.8 g/dL (14.0-18.0); Mean Corpuscular Hemoglobin 30.7 pg (25-34); Mean Corpuscular Hgb Conc 33.7 g/dL (32-36); Mean Corpuscular Volume 91.1 fL (80-100); Mean Platelet Volume 10.4 fL (7.4-10.4); Platelet Count 207 K/uL (130-400); RDW Coefficient of Variation 13.6 % (11.5-14.5); RDW Standard Deviation 45.1 fL (36.4-46.3); Red Blood Count 3.84 M/uL (4.7-6.1); White Blood Count 9.52 K/uL (4.8-10.8)
[2022-03-03 06:07] LABS: BUN Creatinine Ratio 14.5 (10-20); Calcium 8.7 mg/dl (8.5-10.1); Creatinine Clr Calc Pharmacy 73.4 ml/min; Est GFR (Non-African American) 68.1 ml/min; Potassium 4.3 mmol/L (3.5-5.1)
[2022-03-03] MEDS: oxyCODONE HCL IR 5 MG TAB (IMMEDIATE RELEASE) PO PRN ×2 (06:37→10:43)
[2022-03-03] MEDS: LAMOTRIGINE 300 MG PO SCH (08:25)
[2022-03-03] MEDS: GABAPENTIN 100 MG CAP PO SCH (08:25)
[2022-03-03] MEDS: OLMESARTAN MEDOXOMIL 5 MG TAB PO SCH (08:25)
--- NOTE | 2022-03-03 08:30 | Hospitalist Progress Note ---
Date of Service March 03, 2022 Assessment & Plan (1) Status post lumbar surgery: Plan: Post op day# 3 S/P L2-S1 decompression and fusion by Dr Regalado -pain management per ortho -wound management per ortho -PT/OT as appropriate -DVT prophylaxis per ortho -incentive spirometry Acute blood loss anemia Postop/dilutional Current Hgb 11.8, pre-op Hgb: 15 Expected, no need for blood transfusion (2) IBS (irritable bowel syndrome): Plan: -change home dicyclomine to PRN for now - pt having difficulty w/ BM after surgery, he is on bowel regimen now and required enema last evening (3) Bipolar disorder: Plan: - Continue Lamictal (4) CKD (chronic kidney disease): Plan: CKD III Pre-op Cr: 1.3 Monitor renal functions, avoid nephrotoxic agents when possible (5) Prostate cancer: Plan: S/p radiation (6) Sleep apnea: Plan: Intolerant to CPAP DVT Prophylaxis -SCDs Disposition per primary service Follows with Dr Carmona in [place] for routine care Thank you for this consultation. We will follow the patient with you during their hospital stay. You can reach a member of the [facility] Hospitalist Team 11/05 via [place] Text Admission and Anticipated Discharge Date Admission Date: February 28, 2022 Subjective Patient seen in follow-up of lumbar spinal surgery Currently sitting up in a chair, in no acute distress Used enema last evening, and had a bowel movement Patient feels well overall, but reports some back pain Denies any fevers, chills, chest pain, shortness of breath, abdominal pain, nausea vomiting Review of Systems Review of Systems: All systems reviewed & are unremarkable except as noted in Subjective Physical Exam Physical Exam: General: WD/WN M in NAD Head: normocephalic, atraumatic Eyes: conjunctiva non-injected, anicteric ENT: normal inspection external ears, nose, mucous membranes moist Neck: supple, trachea midline Lungs: clear, no respiratory distress, no wheezing/rhonchi/rales CV: RRR, no murmur, no pretibial edema Abd: normal BS, soft, non-tender Back: surgical dressing in place and dry. +CLAUDETTE drain in place with scant amount of serosanguineous drainage Ext: no calf tenderness; pedal pushes and pulls intact bilaterally, ambulates Neuro: A&O x 3, no focal deficits noted, normal affect Skin: warm, dry Results & Data Results & Data ([facility]) Vital Signs (Past 12 Hours) Vital Signs Temp Pulse Resp BP Pulse Ox 03/03/22 06:29 36.9 C 98 H 18 109/63 96 03/02/22 22:13 37.3 C 79 16 101/67 95 Laboratory Results 03/03/22 03/03/22 Range/Units 05:14 05:14 WBC 9.52 (4.8-10.8) K/uL RBC 3.84 L (4.7-6.1) M/uL Hgb 11.8 L (14.0-18.0) g/dL Hct 35.0 L (42-52) % MCV 91.1 (80-100) fL MCH 30.7 (25-34) pg MCHC 33.7 (32-36) g/dL RDW Std Deviation 45.1 (36.4-46.3) fL RDW Coeff of Annette 13.6 (11.5-14.5) % Plt Count 207 (130-400) K/uL MPV 10.4 (7.4-10.4) fL Sodium 131 L (136-145) mmol/L Potassium 4.3 (3.5-5.1) mmol/L Chloride 100 (98-107) mmol/L Carbon Dioxide 26 (21-32) mmol/L Anion Gap 5 (3-11) BUN 16 (6-23) mg/dl Creatinine 1.10 (0.6-1.4) mg/dl Est Cr Clr Drug Dosing 73.4 ml/min Est GFR ( Amer) 79.0 ml/min Est GFR (Non-Af Amer) 68.1 ml/min BUN/Creatinine Ratio 14.5 (10-20) Glucose 108 H (70-99(Fasting)) mg/dl Calcium 8.7 (8.5-10.1) mg/dl Magnesium 2.0 (1.7-2.4) mg/dl Medications Administered Current Inpatient Medications Acetaminophen (Acetaminophen 500 Mg Tab) 1,000 mg PO Q8H PRN PRN Reason: MILD Pain Scale 1,2,3 & Pre PT Stop: 03/30/22 15:32 Al Hydrox/Mg Hydrox/Simethicone (Aluminum/Magnesium Susp 30 Ml Udc) 30 ml PO Q6H PRN PRN Reason: Dyspepsia Stop: 03/30/22 15:32 Bisacodyl (Bisacodyl 10 Mg Supp) 10 mg WI DAILY PRN PRN Reason: Constipation Stop: 03/30/22 15:32 Dicyclomine HCl (Dicyclomine Hcl 20 Mg Tab) 20 mg PO QID PRN PRN Reason: abdominal cramping Stop: 03/30/22 16:59 Diphenhydramine HCl (Diphenhydramine Capsule 25 Mg Cap) 25 mg PO Q6H PRN PRN Reason: Allergic Rhinitis/Insomnia Stop: 03/30/22 15:32 Last Admin: 03/02/22 01:03 Dose: 25 mg Documented by: Diphenoxylate HCl/Atropine (Diphenoxylate/Atropine 2.5/0.025mg Tab) 1 tab PO TID PRN PRN Reason: Diarrhea Stop: 03/30/22 15:40 Famotidine (Famotidine 20 Mg Tab) 20 mg PO Q12H PRN PRN Reason: Dyspepsia Stop: 03/30/22 15:32 Gabapentin (Gabapentin 100 Mg Cap) 100 mg PO BID YOVANI Stop: 03/30/22 20:59 Last Admin: 03/03/22 08:25 Dose: 100 mg Documented by: Hydromorphone HCl (Hydromorphone Inj 0.5 Mg/0.5 Ml Syr) 0.5 mg IV Q3H PRN PRN Reason: MODERATE Pain (Scale 4,5,6) & Pre PT Stop: 03/14/22 15:32 Last Admin: 03/01/22 11:56 Dose: 0.5 mg Documented by: Hydromorphone HCl (Hydromorphone Inj 1 Mg/Ml Syringe) 1 mg IV Q3H PRN PRN Reason: SEVERE Pain (Scale 7,8,9,10) Stop: 03/14/22 15:32 Last Admin: 03/03/22 03:03 Dose: 1 mg Documented by: Hydroxyzine HCl (Hydroxyzine Hcl 25 Mg Tab) 25 mg PO Q8H PRN PRN Reason: Anxiety Stop: 03/30/22 15:32 Promethazine HCl 12.5 mg/ (Sodium Chloride) 50.5 mls @ 202 mls/hr IV Q6H PRN PRN Reason: Nausea &/or Vomiting Stop: 03/30/22 15:32 Last Infusion: 02/28/22 17:40 Dose: Infused Documented by: Acetaminophen (Ofirmev) 1,000 mg in 100 mls @ 400 mls/hr IV Q8H PRN PRN Reason: Pain Rating 1-3 & Pre PT Stop: 03/03/22 15:32 Influenza Virus Vaccine Quadrival (Do Not Administer Flu Vaccine) 1 ea N/A PRN PRN PRN Reason: Notification Stop: 03/30/22 15:32 Lamotrigine (Lamotrigine [Lamictal Xr] 300 Mg Tablet) 1 ea PO QAMUSCOGEE Stop: 03/31/22 08:59 Last Admin: 03/03/22 08:25 Dose: 1 ea Documented by: Lorazepam (Lorazepam 0.5 Mg Tab) 0.5 mg PO Q8H PRN PRN Reason: Sedation/Anxiety Stop: 03/30/22 15:43 Lorazepam (Lorazepam 2 Mg/1 Ml Vial) 0.5 mg IV Q8H PRN PRN Reason: Sedation/Anxiety Stop: 03/30/22 15:32 Magnesium Hydroxide (Magnesium Hydroxide Susp 30 Ml Udc) 30 ml PO Q24H PRN PRN Reason: Constipation Stop: 03/30/22 15:32 Last Admin: 03/02/22 12:05 Dose: 30 ml Documented by: Menthol (Cough Drop (Sugar Free) Marimar 24 Marimar/1 Box) 1 marimar BUCCAL PRN PRN PRN Reason: Sore Throat Stop: 03/30/22 22:15 Last Admin: 02/28/22 23:03 Dose: 1 marimar Documented by: Metoclopramide HCl (Metoclopramide Hcl Inj 5 Mg/Ml 2 Ml Vial) 10 mg IV Q6H PRN PRN Reason: Nausea &/or Vomiting Stop: 03/30/22 15:32 Last Admin: 03/02/22 22:01 Dose: 10 mg Documented by: Naloxone HCl (Naloxone Hcl 0.4 Mg/1 Ml Vial/Carp) 0.1 mg IV Q5M PRN PRN Reason: Oversedation/Resp depression Stop: 03/30/22 15:32 Olmesartan (Olmesartan Medoxomil 5 Mg Tab) 5 mg PO QAM [facility] Stop: 03/31/22 08:59 Last Admin: 03/03/22 08:25 Dose: 5 mg Documented by: Ondansetron HCl (Ondansetron Inj 2 Mg/Ml 2 Ml Vial) 4 mg IV Q6H PRN PRN Reason: Nausea &/or Vomiting Stop: 03/30/22 15:32 Last Admin: 02/28/22 15:52 Dose: 4 mg Documented by: Ondansetron HCl (Ondansetron 4 Mg Od Tab) 4 mg PO Q6H PRN PRN Reason: Nausea Stop: 03/30/22 15:32 Oxycodone HCl (Oxycodone Hcl Ir 5 Mg Tab (Immediate Release)) 5 - 10 mg PO Q4H PRN PRN Reason: Pain & Pre PT Stop: 03/14/22 15:32 Last Admin: 03/03/22 06:37 Dose: 10 mg Documented by: Pneumococcal Polyvalent Vaccine (Do Not Administer Pneumococcal Vaccine) 1 ea N/A PRN PRN PRN Reason: Notification Stop: 03/30/22 15:32 Polyethylene Glycol (Polyethylene (Miralax) 17 Gm Pack) 17 gm PO Q6 [facility] Stop: 03/31/22 05:59 Last Admin: 03/03/22 06:29 Dose: 17 gm Documented by: Senna/Docusate Sodium (Docusate Sodium/Senna 50/8.6mg Tab) 2 tab PO HS [facility] Stop: 03/30/22 20:59 Last Admin: 03/02/22 20:47 Dose: 2 tab Documented by: Sodium Biphosphate/Sodium Phosphate (Sod Phosphate/Sod Biphosphate Enema 132 Ml Btl) 132 ml WI ONE PRN PRN Reason: Constipation Stop: 03/30/22 15:32 Tramadol HCl (Tramadol Hcl 50 Mg Tablet) 50 - 100 mg PO Q4H PRN PRN Reason: Moderate-Severe pain & Pre PT Stop: 03/30/22 15:32
--- NOTE | 2022-03-03 12:52 | Discharge Summary ---
Date of Service March 03, 2022 Admission HPI Per Admitting Provider 63-year-old male presents with chronic persistent back and leg pain. Failing course of nonoperative care is here for surgical invention. Principal Diagnosis Lumbar spinal stenosis with neurogenic claudication Discharge Data Allergies Allergy/AdvReac Type Severity Reaction Status Date / Time prednisone Allergy Intermediate Shakiness Verified 02/28/22 09:03 ibuprofen Allergy Unknown Unknown Verified 02/28/22 09:03 levofloxacin [From Levaquin] Allergy Unknown Unknown Verified 02/28/22 09:03 lisinopril Allergy Unknown Unknown Verified 02/28/22 09:03 cloth bandage Allergy Mild Rash Uncoded 02/28/22 09:03 Consultations 02/28/22 15:33 Consult Hospitalist Routine Procedures Performed Operation Date: 02/28/22 10:05 Actual Procedures p L2-S1 Decompression and Fusion with interbody cage at L4-L5, Spinal Cord Monitoring - Vasquez Regalado DO Ordered Studies 02/28/22 10:05 FL lumbar spine 2-3V Routine Hospital Course (1) Neurogenic claudication due to lumbar spinal stenosis: Patient went lumbar decompression fusion Tars posting orthopedic for possibly. Postop day 1 he was up and ambulating progressed to postop day 2 on postop day 3 pain was well controlled CLAUDETTE drain decreased appropriately. Simply discharged home. Discharge orders instructions from the chart for further review. Total Time Total Time Spent Total Time Spent (In Minutes): 20 minutes Discharge Plan Discharge Items Patient Disposition: Home - Self-Care Reason For Visit: Spinal Stenosis of Lumbar Region with Radiculopath Discharge Diagnosis: Lumbar spinal stenosis with radiculopathy Activity: As commented below Non-emergency contact: Primary Care Provider Call non-emergency contact if: you have any medication questions Follow-up/Referrals: PCP,NO [Primary Care Provider] - Diet: Regular Addtl Attending Provider Instructions: ACTIVITY RECOMMENDATIONS: SELF CARE INSTRUCTIONS AFTER THORACIC/LUMBAR FUSIONS 1. You may walk to your tolerance. It is good exercise for your legs and back. Expect some back and intermittent leg aches and pains. 2. You may perform "counter-top" level activities (make a sandwich, ephraim with a project, etc.). 3. No bending or lifting of more than 10 pounds or back twisting of any nature (roll like a log when turning in bed). 4. You may ride in a car for 20-30 minutes at a time. No driving until after your first visit with your doctor. 5. Frequent changes of position and restricting sitting to 30 minutes at a time will help limit the amount of back spasms and stiffness you may experience. 6. You may discontinue the use of ambulatory aids (cane, crutches, etc.) once your strength and confidence allow. 7. You may patient financial counselor the shower and let water strike your incision when you arrive home at least once daily. Do not take a tub bath, sit in a hot tub or go into a swimming pool until after your first recheck in the office. SPECIAL CARE INSTRUCTIONS: VERY IMPORTANT TO READ AND REVIEW A. Your surgical incision has been closed with a cosmetic suture under the skin that will dissolve in about 6 weeks. In 14 days, you can use a pair of clean scissors and cut the suture that is left outside of the skin at the ends of your incision. 1. The small skin tapes can be removed 7 days after surgery if they have not fallen off by that point. 2. You may keep the wound open to air as much as possible to promote healing after post-op day number 5 unless told otherwise by your doctor. 3. If you think the wound looks like it is becoming infected (redness or worsening drainage) and/or you are experiencing fever, chill or worsening back pain and muscle spasms, contact the office so that we may evaluate you as soon as possible. B. Complications are uncommon, but please contact us if you have any signs or symptoms of: 1. wound infection (fever higher than 102.5 degrees F, redness, separation of wound, drainage, or increasing pain from the incision) 2. blood clots in legs (pain, swelling, redness and warmth in legs) 3. urinary tract infection (fever higher than 102.5 degrees F, burning upon urination or increased frequency of urination) 4. nerve problems (inability to walk on your toes or heels, numbness, loss o f bowel or bladder control) 5. any other symptoms that concern you C. Please call the office at if you have any concerns or question s about your operation or recovery. D. No smoking! Smoking drastically decreases the chance of a solid fusion. E. Do not take any anti-inflammatory medications (Indocin, Advil, Motrin, Aspirin, Naprosyn, etc.) as these may inhibit the chance of a solid fusion. Tylenol is okay to take for pain. MANAGING PAIN AFTER SPINAL SURGERY 1. Narcotic medication is intended for short-term use and will be provided for surgical pain. Surgical pain usually lasts for a period of 4-6 weeks. Narcotic medication includes Percocet, Vicodin, Darvocet, Tylenol #3 or Lortab. 2. Longer-term pain is more appropriately treated with non-narcotic medication such as Tylenol ES. 3. Muscle spasm is not appropriately treated with narcotics. Muscle relaxers such as Soma, Flexeril or Skelaxin can be used along with Tylenol ES. 4. Remember that we all live with some "aches and pains". This is not unusual or uncommon after an injury or as we get older. a. Back pain is expected and may include muscle spasms for 4 to 6 weeks after surgery. The pain should gradually improve. If the pain worsens for no apparent reason, please contact the office. b. Intermittent leg pain may also be experienced and should not be concerned about unless it worsens for no apparent reason. If so, please contact the office. 5. We will provide appropriate medication within the normal guidelines of their prescribed use. We will also be very cautious and aware of potential abuse and extended duration of patients' medication needs. a. Pain medications are for your comfort and to assist with sleep and rest so that the tissue can heal. They are not provided in order to return to normal activity and should not be used through the day. To do so or worsening pain at night can result from ongoing tissue damage and development of tolerance to the prescribed medicine. 6. Please allow 2-3 days to process refills. Prescriptions will not be mailed but must be picked up at the office. FOLLOW UP VISIT: Keep your scheduled follow-up appointment. Any questions, please call the office at . Pending Studies at Discharge: No Stand-Alone Forms: My NoFlo, Smoking Cessation Medications and DC Order Prescriptions: New tramadol 50 mg tablet 50 mg PO Q6H PRN (Reason: pain, moderate) Qty: 30 RF: 0 oxycodone 5 mg tablet 5 mg PO Q6H PRN (Reason: pain, severe) Qty: 30 RF: 0 Continued loperamide [Imodium A-D] 2 mg Tablet 4 mg PO QAM RF: 0 diphenoxylate-atropine 2.5-0.025 mg Tablet 1 tab PO TID PRN (Reason: Diarrhea) RF: 0 dicyclomine 20 mg Tablet 20 mg PO QID RF: 0 gabapentin 100 mg Capsule 100 mg PO BID RF: 0 olmesartan 5 mg Tablet 5 mg PO QAM RF: 0 lamotrigine [Lamictal XR] 300 mg Tablet Extended Release 24hr 300 mg PO QAM RF: 0 Discharge Orders: Discharge Order (Routine); Ordered 03/03/22 Ordered By: Vasquez Regalado Admission Data Admit Date/Time: 02/28/22 12:51 Attending Provider: Vasquez Regalado Admit Provider: Vasquez Regalado Primary Care Provider: PCP,NO Other Providers: Gilbert Clark
== END 2022-03-03 15:02 | disposition home or self-care (01) | DRG 454 ==
LOC: ASU 08:37 → 3E 12:51